=== PATIENT | female | born 1965 | race Caucasian/White ===

== ENCOUNTER → 2016-08-31 | Day surgery (SDC) | payer OTHER ==
[~2016-08-31] VITALS: Ht 157.5 cm; Wt 68.0 kg
[~2016-08-31] MED LIST: 0.9% Sodium Chloride 1,000 ML IV SCH; LORA0.5T PO; Sodium Chloride LOK Flush 10 mL Syringe IV PRN; fentaNYL-PF 50 mCg/mL 2 mL Inj IVPUSH PRN
[2016-08-31 07:36] VITALS: BP 123/70; PULSE 75; RESP 15; O2SAT 98
[2016-08-31 08:31] VITALS: BP 116/71; PULSE 78; RESP 16; O2SAT 96
[2016-08-31 08:40] VITALS: BP 103/64; PULSE 87; RESP 16; O2SAT 99
--- NOTE | 2016-08-31 11:26 | ENDO ---
[address] [address] ENDOSCOPY PROCEDURE PATIENT: DAPHNE YUAN : 1965 MR#: [id number] ADMIT: 08/31/2016 JOB ID: [id number] DATE: 08/31/2016 PROCEDURE: Colonoscopy. INDICATIONS: Screening. The patient's ASA classification is one. Mallampati score is two. MEDICATIONS: 1. Versed 5 mg. 2. Fentanyl 100 mcg. INSTRUMENT USED: PCF H 180 AL. PREPARATION QUALITY: Good. PROCEDURE DETAILS: After informed consent was obtained, the patient was brought to the GI suite, where she was placed on oxygen via nasal cannula and monitored with continuous pulse oximeter, telemetry and blood pressure monitoring. A time-out was performed. Then, she was placed in the left lateral decubitus position and medications were administered for sedation. Digital rectal exam was performed and was unremarkable. The colonoscope was then inserted into the rectum and advanced under direct visualization to the cecum, which was identified by the presence of the ileocecal valve and appendiceal orifice. Once the cecum was reached, the colonoscope was withdrawn back to the rectum. The mucosa and lumen were examined. In the rectum, retroflexion was performed. Following retroflexion, remaining air in the rectum was suctioned, and procedure was completed. FINDINGS: In the sigmoid colon there was an approximately 6 mm sessile polyp that was removed with a hot snare. IMPRESSION: Sigmoid colon polyp. RECOMMENDATIONS: 1. Repeat colonoscopy in five years. 2. Avoid NSAIDs and anticoagulants for 72 hours. 3. Follow up in GI clinic as needed. COMPLICATIONS: None. ESTIMATED BLOOD LOSS: Zero. Cc: Obdulia Hernandez
--- NOTE | 2016-09-06 09:31 | PATH ---
SURGICAL PATHOLOGY Attending Physician:Amauri Wood CASE STATUS: Signed Out PATIENT NAME: DAPHNE YUAN PID: [id number] : 1965 DATE COLLECTED:08/31/2016 17:27 SPECIMEN: Colon, Polyp CLINICAL HISTORY: 1). SIGMOID POLYP FINAL DIAGNOSIS: 1.SIGMOID POLYP: HYPERPLASTIC POLYP. ICD10 K63.5 GROSS DESCRIPTION: Received one formalin-filled container, labeled with the patient' s name and labeled "sigmoid polyp". The specimen consists of a 0.3 x 0.3 x 0.3 cm portion of tissue, which is entirely submitted in one cassette. (DC:[facility] [id number]) MICRO DESCRIPTION: See diagnosis. ICD-9 CODES: CPT CODES: 1: 98805 Electronically Signed Out January Lazar MD [facility] Pathology [facility], [place] [address] Technical component performed at [facility], [address] [place] [address] Ave[address], [address]
== END | disposition home or self-care (01) ==
LOC: END 00:12
PROVIDERS: ATTEND Internal Medicine Gastroenterology
DX: Z12.11 Encounter for screening for malignant neoplasm of colon (principal); K63.5 Polyp of colon; I49.3 Ventricular premature depolarization; G35 Multiple sclerosis; M25.50 Pain in unspecified joint; F41.1 Generalized anxiety disorder; E78.2 Mixed hyperlipidemia; Z87.891 Personal history of nicotine dependence
CPT/HCPCS: 45385; 99153; G0500; J2250; J3010; J7030